=== PATIENT | female | born 1965 | race Caucasian/White ===

== ENCOUNTER 2017-12-04 16:43 | Observation (INO) ==
[2017-12-04 17:18] LABS: Hematocrit 42.9 % (37.0-47.0); Hemoglobin 14.1 gm/dL (12.5-16.0); Mean Cell Volume 94.9 fl (78-100); Mean Corpuscular Hemoglobin 31.2 pg (27-31); Mean Corpuscular Hgb Conc 32.9 g/dl (32-36); Mean Platelet Volume 8.9 fl (8-12.5); Neutrophil # 15.1 K/mm3 (1.3-6.0); Neutrophil % 82.9 % (42-75.0); Platelet Count 425 K/mm3 (150-450); Red Blood Count 4.52 M/mm3 (4.2-5.4); Red Cell Distribution Width 12.8 % (11.5-14.0); White Blood Count 18.2 K/mm3 (4.0-10.5)
--- NOTE | 2017-12-04 17:23 | ERNOTE ---
Abdominal HPI - Narrative Date of Service: 12/04/17 - General Chief Complaint: Abdominal Pain Time Seen by Provider: 12/04/17 17:22 Source: patient Exam Limitations: no limitations - Immun/Allergies/Home Medications Immunizatons: IMMUNIZATION HX Immunizations Up to Date Yes History of Influenza Vaccine Yes Hx Pneumococcal Vaccination No Allergies/Adverse Reactions: Allergies No Known Allergies Allergy (Verified 12/04/17 16:58) Home Medications: HOME MEDICATIONS Calcium Carbonate/Vitamin D3 [Calcium 500 + Vit D3 400 Tab] 1 each PO DAILY 03/31/14 [Last Taken Unknown] Ipratropium/Albuterol Sulfate [Combivent Respimat Inhal [place]] 1 puff IH QID PRN 03/31/14 [Last Taken Unknown] Multivit-Min/FA/Lycopene/Lut [Centrum Silver Tablet] 1 each PO DAILY 03/31/14 [Last Taken Unknown] Vitamin E (Dl,Tocopheryl Acet) [Vitamin E] 400 units PO DAILY 03/31/14 [Last Taken Unknown] Inhaler, Assist Devices [Space Chamber Plus] 1 dose MC PRN #1 spacer 05/10/14 [Last Taken Unknown] Ibuprofen [Motrin] 400 mg PO PRN 02/24/17 [Last Taken 02/24/17 17:00] Albuterol Sulfate [Proair Hfa] 1 - 2 puff IH Q4H PRN 12/04/17 [Last Taken Unknown] Ciprofloxacin HCl [Cipro] 500 mg PO BID 12/04/17 [Last Taken Unknown] predniSONE [Prednisone] 12/04/17 [Last Taken Unknown] - Pain Score Pain Score #1 Pain Score: 7 Abdominal Pain Onset Location: LLQ Pain Radiation: flank - left CVA - History of Present Illness Narrative: The patient is a 52 year old female who presents for LLQ, left flank and nausea which has been present for 5 days. There are associated symptoms of constipation and vomiting. The patient reports pain to LLQ, 7/10. There are no alleviating factors. There are aggravating factors of movement and oral intake. Previous treatments have included: laxative with results on 11/29/17, no BM since. Patient is also currently on treatment of Cipro and Prednisone for URI. The past medical history includes: COPD, asthma and peritonitis from ruptured ovarian cyst. The social history is positive for current smoking. The patient has had no ill contacts. Patient was started on Cipro on Saturday. Timing: getting worse Quality: cramping, sharpness Activities at Onset: none Associated Symptoms: Present: back pain, fatigue, nausea, vomiting, loss of appetite, shortness of breath. Absent: chest pain, diarrhea-gross blood, diarrhea-mucous, fever/chills, swelling/mass in abdomen Prior Abdominal Problems: Present: none Prior Treatment: Present: recently seen, currently on antibiotics Review of Systems - Review of Systems Constitutional: Present: fatigue, malaise. Absent: fever EYE: Present: no symptoms reported ENT: Absent: ear pain, nasal drainage, sore throat Respiratory: Present: shortness of breath, cough, wheezing Cardiology: Present: no symptoms reported. Absent: chest pain Gastrointestinal/Abdominal: Present: nausea, vomiting, constipation, abdominal pain, eating less, drinking less. Absent: diarrhea Genitourinary: Present: decreased urinary output. Absent: dysuria Musculoskeletal: Present: back pain Skin: Present: no symptoms reported. Absent: rash Neurological: Present: no symptoms reported Endocrine: Present: no symptoms reported Hematologic/Lymphatic: Present: no symptoms reported Psych: Present: no symptoms reported All Other Systems: All systems neg except as marked Medical History (Last Reviewed 12/04/17 @ 17:33 by ALAYNA Gibbs) History of COPD History of asthma Hx of peritonitis Surgical History: Surgical History (Last Reviewed 12/04/17 @ 17:33 by ALAYNA Gibbs) No pertinent past surgical history Family History: Family History (Last Reviewed 12/04/17 @ 17:33 by ALAYNA Gibbs) Other No pertinent family history Social History: Preferred Language [place] Smoking Status Current every day smoker Psych History No pertinent hx Alcohol Use rarely Drug Use none Physical Exam - Physical Exam General Appearance: Present: wd/wn, alert, mild distress - appears uncomfortable Head Exam: Present: normal inspection Eye Exam: Normal inspection: bilateral Respiratory: Present: no respiratory distress, wheezing - diffuse expiratory Cardiovascular/Chest: Present: regular rate, rhythm, no murmur Gastrointestinal/Abdominal: Present: nondistended, soft, no organomegaly, tenderness - LLQ, abnormal bowel sounds - hyperactive throughout Back Exam: Present: normal inspection, CVA tenderness (L) Neurological Exam: Present: alert, oriented, normal mood/affect Skin Exam: Present: normal color, warm/dry ED Progress - Date and Time Seen: Date and Time: 12/04/17 20:[address] with patient. Discussed findings and results with , plan for observation admission. - Results and Orders Patient's Lab Results:: I have reviewed the patient's lab results. - Vital Signs Patient's Vital Signs:: I have reviewed the patient's vital signs. Vital Signs: Vital Signs 12/04/17 16:53 Temperature 37.6 C Pulse Rate 95 Respiratory Rate 19 Blood Pressure 152/106 H O2 Sat by Pulse Oximetry 92 L - X-Ray X-Ray #1 X-Ray: abdomen Interpretation: Reviewed by me X-ray Comments: X-RAY REPORT ~[id number] RAD/Abdomen Flat W/ Upright *~ Exam Date: 12/04/2017 17:01 Ordering Physician: Lisandra Cool HISTORY: Abdominal Pain Additional history from technologist: left sided flank pain, n/v since . hx ruptured ovarian cyst TECHNIQUE: AP upright and supine views of the abdomen were obtained, total of 2 images. COMPARISONS: None available. FINDINGS: Abdomen Flat W/ Upright *: No subdiaphragmatic free air. No abnormal dilation of large or small bowel. There is moderate stool retention throughout the colonic segments. Air-fluid levels are noted within colonic segments. No definite pathologic calcifications apparent. Osseous structures are intact. IMPRESSION: 1. Nonobstructive bowel gas pattern. 2. Stool retention noted. Consider constipation. 3. Air-fluid levels within colonic segments could represent underlying colitis, versus diarrheal disease. Electronically signed by Tatiana Arellano M.D.. - CT/Ultrasound CT/Ultrasound Narrative: X-RAY REPORT ~[id number] CT/CT Abdomen/Pelvis W/C *~ Exam Date: 12/04/2017 18:09 Ordering Physician: Jerica Hopson HISTORY/INDICATION: wheelchair LLQ pain, left CVA tenderness Additional history from technologist: Left-sided abdominal pain. Nausea and vomiting since . TECHNIQUE: Contrast enhanced CT images of the abdomen during portal venous phase obtained. Excretory phase images of the abdomen and pelvis were also obtained. Coronal reconstructions were also submitted. Oral contrast material was given. Dose reduction techniques using the adjustment of the mA and/or kV according to patient size and/or use of AEC or iterative reconstruction were used in the acquisition of this exam. COMPARISON: None available. CT Abdomen/Pelvis W/C * ABDOMEN: Lungs: The visualized portions of the lung bases are clear. Liver: Series 3 image 10 demonstrates a 12 x 19 mm ovoid well-defined hypodense lesion in the right hepatic lobe, likely in segment 7, which appears to be less distinct and conspicuous on the delayed images. No other lesions are seen. There is no definite signs of cirrhosis. No intrahepatic ductal dilation. Gallbladder: The gallbladder appears to be grossly unremarkable. Noncalcified gallstones would be difficult to exclude, and an ultrasound of the gallbladder should be considered if there is a concern for cholecystitis or biliary colic. Pancreas: The pancreas appears to be normal in appearance. Spleen: Multiple splenic calcified granulomas are present. Adrenal glands: Unremarkable without focal finding. Kidneys: Right kidney demonstrates multiple cysts of the lower pole region without definite signs of mass or hydronephrosis. There is mild left-sided hydronephrosis, and relatively decreased enhancement of the left kidney compared to the right. Multiple hypodense lesions are likely cysts. No definite signs of a solid mass. There is no evidence for parenchymal or renal pelvic gas. On the delayed images, the left kidney demonstrates somewhat striated appearance. There is no excretion of contrast material in the left renal pelvis/ureter. Aorta: Mild calcified atherosclerotic plaques noted. Largest transaxial diameter of the infrarenal segment is 1.8 cm. Retroperitoneum: No pathologic size lymphadenopathy or mass within the retroperitoneum is seen. Stomach: Well opacified stomach unremarkable. Small bowel: Unremarkable, without signs of obstruction, bowel wall thickening, or mesenteric inflammatory changes. Colon: The colon appears to be grossly unremarkable. Appendix is not visualized definitively but no definite pericecal or right lower quadrant inflammatory changes are noted. Abdominal wall: Unremarkable without focal mass or hernia. No evidence for intraperitoneal free air. PELVIS: Contrast-filled portions of the urinary bladder demonstrates no focal finding. Series 4 image 67 demonstrates potential 2 discrete calcific/contrast densities of the left distal ureter near the left ureterovesical junction with the largest measuring approximately 2-3 mm. These could also represent small amount of contrast material refluxing into the distal ureter. No definite signs of pelvic lymphadenopathy or masses are noted. No evidence of free pelvic fluid noted. Bones: Osseous structures appear intact without obvious destructive changes. Degenerative changes of the spine noted. IMPRESSION: 1. Signs of left-sided obstructive uropathy as above, with mild left-sided hydronephrosis. There is also striated appearance of the left kidney on the delayed images. Consider superimposed infection/pyelonephritis. 2. Potential small discrete calcifications versus artifact from refluxed contrast material at the distal left ureter. 3. Multiple renal cysts. 4. Incidental lesion of the right hepatic lobe as discussed above. This is somewhat indeterminate in terms of its significance. Could represent a benign lesion such as a atypical hemangioma. Other neoplasm to include malignancy cannot be entirely excluded. Recommend routine characterization by MRI of the abdomen without and with contrast. If MRI is contraindicated, consider CT of the abdomen without and with contrast utilizing liver mass protocol. 5. Appendix not definitively seen but no definite signs of right lower quadrant/pericecal inflammatory changes. 6. Additional comments and details are as above. Electronically signed by Tatiana Arellano M.D.. - Progress/Reassessment Chief Complaint: Abdominal Pain Progress:: Unchanged Progress Note-Subjective: 12/04/17 20:47 Mild improvement to pain after medications. Departure Clinical Impression: Pyelonephritis, Failure of outpatient treatment, Pain management - Departure Disposition: Still a patient Condition: Fair
[2017-12-04 17:27] LABS: Albumin * 3.6 gm/dl (3.4-5.0); Anion Gap 8.8 mmol/L (6.8-13.8); BUN/Creatinine Ratio 18.7 (9.0-21.6); Bilirubin, Total 0.3 mg/dL (0.0-1.1); Ca. Corrected For Albumin 9.5 mg/dL (8.4-10.2); Calcium * 9.5 mg/dL (7.9-10.9); Carbon Dioxide 32.2 mmol/L (24-32.6); Total Protein 7.8 gm/dL (6.2-8.2)
[2017-12-04] MEDS ORDERED: ONDANSETRON HCL/PF 2 MG/ML VIAL IV ONE (17:36)
[2017-12-04] MEDS ORDERED: MORPHINE SULFATE 2 MG/ML DISP.SYRIN IV ONE (17:36)
[2017-12-04 17:41] LABS: Urine Bilirubin Negative (NEGATIVE); Urine Blood 250 /ul (NEGATIVE); Urine Ketone Negative (NEGATIVE); Urine Nitrite Negative (NEGATIVE); Urine Protein Negative (NEGATIVE); Urine Specific Gravity 1.025 SP.GR. (1.005-1.010); Urine Urobilinogen Normal (NORMAL); Urine pH 6.5 pH (5.0-7.0)
[2017-12-04 17:44] LABS: Urine Color Yellow
[2017-12-04 17:45] LABS: Urine Appearance Cloudy (CLEAR)
[2017-12-04 17:47] LABS: Urine Bacteria TRACE; Urine RBC 25-50 /hpf (0-5); Urine WBC 0-5 /hpf (0-5)
[2017-12-04] MEDS ORDERED: ONDANSETRON HCL/PF 2 MG/ML VIAL ONE (17:49)
[2017-12-04] MEDS ORDERED: MORPHINE SULFATE 2 MG/ML DISP.SYRIN ONE (17:49)
[2017-12-04] MEDS ORDERED: ALBUTEROL SULFATE/IPRATROPIUM 3 ML NEBU IH ONE ×3 (17:57→18:01)
[2017-12-04] MEDS ORDERED: DIATRIZOATE MEGLUMINE, SODIUM 30 ML BTL PO ONE (18:09)
[2017-12-04] MEDS ORDERED: DIATRIZOATE MEGLUMINE, SODIUM 30 ML BTL ONE (18:16)
[2017-12-04] MEDS ORDERED: NORMAL SALINE 1,000 ML IV PRN ×2 (20:58→21:10)
[2017-12-04] MEDS ORDERED: MORPHINE SULFATE 4 MG/ML SYRG IV PRN ×2 (21:00→21:15)
[2017-12-04] MEDS ORDERED: ONDANSETRON HCL/PF 2 MG/ML VIAL IV PRN (21:01)
[2017-12-04] MEDS ORDERED: SENNOSIDES/DOCUSATE SODIUM 1 TAB TABLET PO PRN (21:15)
[2017-12-04] MEDS ORDERED: HYDROcodone/ACETAMINOPHEN 1 EACH TABLET PO PRN ×2 (21:15)
[2017-12-04] MEDS ORDERED: ACETAMINOPHEN 325 MG TABLET PO PRN (21:15)
[2017-12-04] MEDS: CIPROFLOXACIN IN 5 % DEXTROSE 400 MG/200 ML BAG IV SCH (22:01)
[2017-12-05 05:30] LABS: Hematocrit 37.7 % (37.0-47.0); Hemoglobin 12.2 gm/dL (12.5-16.0); Mean Cell Volume 96.9 fl (78-100); Mean Corpuscular Hemoglobin 31.4 pg (27-31); Mean Corpuscular Hgb Conc 32.4 g/dl (32-36); Neutrophil % 80.9 % (42-75.0); Platelet Count 389 K/mm3 (150-450); Red Blood Count 3.89 M/mm3 (4.2-5.4); White Blood Count 12.3 K/mm3 (4.0-10.5)
[2017-12-05 05:52] LABS: Anion Gap 7.8 mmol/L (6.8-13.8); BUN/Creatinine Ratio 18.1 (9.0-21.6); Bilirubin, Total 0.3 mg/dL (0.0-1.1); CRP 0.2 mg/dL (0.0-0.9); Ca. Corrected For Albumin 8.9 mg/dL (8.4-10.2); Calcium * 8.4 mg/dL (7.9-10.9); Carbon Dioxide 30.4 mmol/L (24-32.6); Potassium 4.2 mmol/L (3.4-4.6); Total Protein 6.5 gm/dL (6.2-8.2)
[2017-12-05] MEDS: CIPROFLOXACIN IN 5 % DEXTROSE 400 MG/200 ML BAG IV SCH ×2 (09:36→21:11)
[2017-12-05] MEDS: HEPARIN SODIUM,PORCINE 5,000 UNITS/ML VIAL SC SCH ×2 (09:42→21:09)
--- NOTE | 2017-12-05 09:50 | HP ---
Chief Complaint - Chief Complaint Date of Service: 12/05/17 Time of Service: 06:50 Chief Complaint: LLQ pain, left flank pain, fevers, chills, nausea/vomiting History of Present Illness: The patient presented to the emergency department with complaints of left lower quadrants and left flank pain as well as nausea and vomiting for the past 5 days or so. The patient's primary care provider is Tina Caicedo and the patient states she was recently diagnosed with bronchitis and started on oral ciprofloxacin and prednisone on Saturday11/30/2017. The patient has not had any improvement in her symptoms since starting this treatment and states things have actually worsened in the left lower quadrant and left flank pain has become more severe. The patient thought that her pain may be secondary to constipation so she took a bunch of laxatives and got cleaned out over the weekend but has not had a bowel movement in a couple days now. She states that despite getting cleaned out, she did not have improvement in her symptoms. Other than the recently prescribed Cipro and prednisone, the patient denies any recent medication changes. She also denies any recent diet changes and specifically denies taking large amounts of Tums or similar. The patient denies any prior known history of kidney stones. The patient denies any urinary symptoms; she denies gross hematuria, dysuria, urgency, hesitancy or frequency. Medical History (Last Reviewed 12/04/17 @ 23:02 by Prachi Espinoza RN) Squamous cell skin cancer, face History of COPD History of asthma Hx of peritonitis Surgical History: Surgical History (Last Reviewed 12/04/17 @ 23:02 by Prachi Espinoza RN) No pertinent past surgical history Family History: Family History (Last Updated 12/04/17 @ 23:03 by Prachi Espinoza RN) Father No pertinent family history COPD (chronic obstructive pulmonary disease) Other Cancer of lung Hypertension Social History: Patient Lives/Resources With Spouse Utilized Occupation RN Preferred Language Thai Do you have any jew or No cultural preference? Smoking Status Current every day smoker Have you smoked in the past 12 Yes months Do you dip or chew tobacco No Psych History No pertinent hx Alcohol Use rarely Drug Use none Review Of Systems (GEN) - Review of Systems Generalized/Overall Review: Present: Weakness, Chills, Fever, Fatigue EENTM: Present: No Symptoms Reported Respiratory: Present: No Symptoms Reported. Absent: Cough, Shortness of Breath, Wheezing Cardiac: Present: No Symptoms Reported Abdominal: Present: Nausea, Vomiting Genitourinary: Absent: Burning, Itching, Urgency, Frequency, Hesitancy, Incontinent, Hematuria, Dysuria Musculoskeletal: Present: Back Pain - left flank pain Neurological: Present: No Symptoms Reported Skin: Present: No Symptoms Reported Endocrine: Present: No Symptoms Reported Misc: All systems neg except as marked Immunizations: IMMUNIZATION HX Immunizations Up to Date Yes History of Influenza Vaccine Yes Hx Pneumococcal Vaccination No Allergies/Adverse Reactions: Allergies Allergy/AdvReac Type Severity Reaction Status Date / Time No Known Allergies Allergy Verified 12/04/17 16:58 Home Medications: HOME MEDICATIONS Calcium Carbonate/Vitamin D3 [Calcium 500 + Vit D3 400 Tab] 1 each PO DAILY 03/31/14 [Last Taken 12/04/17] Ipratropium/Albuterol Sulfate [Combivent Respimat Inhal [place]] 1 puff IH QID PRN 03/31/14 [Last Taken 12/04/17] Multivit-Min/FA/Lycopene/Lut [Centrum Silver Tablet] 1 each PO DAILY 03/31/14 [Last Taken 12/04/17] Vitamin E (Dl,Tocopheryl Acet) [Vitamin E] 400 units PO DAILY 03/31/14 [Last Taken 12/04/17] Ibuprofen [Motrin] 400 mg PO PRN 02/24/17 [Last Taken 12/04/17] Albuterol Sulfate [Proair Hfa] 1 - 2 puff IH Q4H PRN 12/04/17 [Last Taken 12/04/17] Ciprofloxacin HCl [Cipro] 500 mg PO BID 12/04/17 [Last Taken 12/04/17 08:00] predniSONE [Prednisone] See Taper PO TID 12/04/17 [Last Taken 12/04/17 15:00] Exam - Exam Vital Signs: Vital Signs - Last Taken Temp 36.7 C 12/05/17 06:47 Pulse 80 12/05/17 06:47 Resp 12 12/05/17 06:47 BP 131/88 12/05/17 06:47 Pulse Ox 98 12/05/17 06:47 Constitutional: Present: Alert, Oriented x3, Cooperative, No distress ENT Exam: Present: normal ENT inspection, hearing grossly normal, moist mucous membranes Back Exam: Present: CVA tenderness (L) Respiratory: Present: lungs clear, normal breath sounds, no respiratory distress, no accessory muscle use Cardiovascular/Chest: Present: regular rate, rhythm Abdomen: Present: Normal bowel sounds, soft, nontender, nondistended, tender, CVA tenderness. Absent: guarding, rigidity, rebound tenderness Extremity: Present: normal range of motion, normal inspection Skin Exam: Present: normal color, warm/dry Neurologic: Present: no motor/sensory deficits, alert, normal mood/affect, oriented x 3 Appearance: Present: appropriate appearance, appropriate insight, neat, no memory impairment Eye contact: Present: cooperative, good eye contact, normal speech Thoughts: Present: normal thought pattern, no apparent hallucination Diagnostic Studies: Abnormal Lab Results 12/04/17 12/04/17 12/04/17 Range/Units 17:13 17:13 17:37 WBC 18.2 H (4.0-10.5) K/mm3 RBC (4.2-5.4) M/mm3 Hgb (12.5-16.0) gm/dL MCH 31.2 H (27-31) pg Immature Gran % (Auto) 0.60 H (0.001-0.429) % Immature Gran # (Auto) 0.11 H (0.000-0.0310) K/mm3 Neutrophils % 82.9 H (42-75.0) % Lymphocytes % 9.2 L (20-51) % Neutrophils # 15.1 H (1.3-6.0) K/mm3 Lymphocytes # (1.5-3.5) k/mm3 Monocytes # 1.3 H (0.0-1.0) k/mm3 ESR (0-15) mm/hr BUN 25 H (3-23) mg/dL Est GFR (Non-Af Amer) 44 L D (60-130) mL/min Random Glucose 134 H (70-110) mg/dL Albumin (3.4-5.0) gm/dl Procalcitonin (0.05-0.50) ng/mL Urine Blood 250 H (NEGATIVE) /ul Ur Leukocyte Esterase 25 H (NEGATIVE) /ul Urine RBC 25-50 H (0-5) /hpf 12/05/17 12/05/17 12/05/17 Range/Units 05:00 05:00 05:00 WBC 12.3 H D (4.0-10.5) K/mm3 RBC 3.89 L (4.2-5.4) M/mm3 Hgb 12.2 L (12.5-16.0) gm/dL MCH 31.4 H (27-31) pg Immature Gran % (Auto) 0.50 H (0.001-0.429) % Immature Gran # (Auto) 0.06 H (0.000-0.0310) K/mm3 Neutrophils % 80.9 H (42-75.0) % Lymphocytes % 12.0 L (20-51) % Neutrophils # 10.0 H (1.3-6.0) K/mm3 Lymphocytes # 1.47 L (1.5-3.5) k/mm3 Monocytes # (0.0-1.0) k/mm3 ESR 21 H (0-15) mm/hr BUN (3-23) mg/dL Est GFR (Non-Af Amer) 58 L D (60-130) mL/min Random Glucose 117 H (70-110) mg/dL Albumin 3.0 L (3.4-5.0) gm/dl Procalcitonin (0.05-0.50) ng/mL Urine Blood (NEGATIVE) /ul Ur Leukocyte Esterase (NEGATIVE) /ul Urine RBC (0-5) /hpf 12/05/17 Range/Units 05:00 WBC (4.0-10.5) K/mm3 RBC (4.2-5.4) M/mm3 Hgb (12.5-16.0) gm/dL MCH (27-31) pg Immature Gran % (Auto) (0.001-0.429) % Immature Gran # (Auto) (0.000-0.0310) K/mm3 Neutrophils % (42-75.0) % Lymphocytes % (20-51) % Neutrophils # (1.3-6.0) K/mm3 Lymphocytes # (1.5-3.5) k/mm3 Monocytes # (0.0-1.0) k/mm3 ESR (0-15) mm/hr BUN (3-23) mg/dL Est GFR (Non-Af Amer) (60-130) mL/min Random Glucose (70-110) mg/dL Albumin (3.4-5.0) gm/dl Procalcitonin Less than 0.05 L (0.05-0.50) ng/mL Urine Blood (NEGATIVE) /ul Ur Leukocyte Esterase (NEGATIVE) /ul Urine RBC (0-5) /hpf Microbiology 12/04/17 17:37 Urine Culture - Preliminary Urine,Voided No Growth Laboratory Results WBC 12.3 K/mm3 (4.0-10.5) H D 12/05/17 05:00 RBC 3.89 M/mm3 (4.2-5.4) L 12/05/17 05:00 Hgb 12.2 gm/dL (12.5-16.0) L 12/05/17 05:00 Hct 37.7 % (37.0-47.0) 12/05/17 05:00 MCV 96.9 fl (78-100) 12/05/17 05:00 MCH 31.4 pg (27-31) H 12/05/17 05:00 MCHC 32.4 g/dl (32-36) 12/05/17 05:00 RDW 13.0 % (11.5-14.0) 12/05/17 05:00 Plt Count 389 K/mm3 (150-450) 12/05/17 05:00 MPV 9.0 fl (8-12.5) 12/05/17 05:00 Immature Gran % (Auto) 0.50 % (0.001-0.429) H 12/05/17 05:00 Immature Gran # (Auto) 0.06 K/mm3 (0.000-0.0310) H 12/05/17 05:00 Neutrophils % 80.9 % (42-75.0) H 12/05/17 05:00 Lymphocytes % 12.0 % (20-51) L 12/05/17 05:00 Monocytes % 6.3 % (0.0-9) 12/05/17 05:00 Eosinophils % 0.1 % (0.0-3.0) 12/05/17 05:00 Basophils % 0.2 % (0.0-1.0) 12/05/17 05:00 Nucleated RBC % 0.0 k/mm3 (0-1) 12/05/17 05:00 Neutrophils # 10.0 K/mm3 (1.3-6.0) H 12/05/17 05:00 Lymphocytes # 1.47 k/mm3 (1.5-3.5) L 12/05/17 05:00 Monocytes # 0.8 k/mm3 (0.0-1.0) 12/05/17 05:00 Eosinophils # 0.0 k/mm3 (0.0-0.7) 12/05/17 05:00 Absolute Basophils 0.0 k/mm3 (0.0-0.1) 12/05/17 05:00 ESR 21 mm/hr (0-15) H 12/05/17 05:00 Sodium 136 mmol/L (132-142) 12/05/17 05:00 Plasma Sodium 136 mmol/L (130-142) 12/05/17 05:00 Potassium 4.2 mmol/L (3.4-4.6) 12/05/17 05:00 Chloride 102 mmol/L (97-106) 12/05/17 05:00 Carbon Dioxide 30.4 mmol/L (24-32.6) 12/05/17 05:00 Anion Gap 7.8 mmol/L (6.8-13.8) 12/05/17 05:00 BUN 19 mg/dL (3-23) 12/05/17 05:00 Creatinine 1.05 mg/dL (0.4-1.4) 12/05/17 05:00 Est GFR (Non-Af Amer) 58 mL/min (60-130) L D 12/05/17 05:00 BUN/Creatinine Ratio 18.1 (9.0-21.6) 12/05/17 05:00 Random Glucose 117 mg/dL (70-110) H 12/05/17 05:00 Calcium 8.4 mg/dL (7.9-10.9) 12/05/17 05:00 Calcium Adj for Albumin 8.9 mg/dL (8.4-10.2) 12/05/17 05:00 Total Bilirubin 0.3 mg/dL (0.0-1.1) 12/05/17 05:00 AST 14 U/L (0-48) 12/05/17 05:00 ALT 21 U/L (19-67) 12/05/17 05:00 Alkaline Phosphatase 83 U/L (50-170) 12/05/17 05:00 C-Reactive Prot, Quant 0.2 mg/dL (0.0-0.9) 12/05/17 05:00 Total Protein 6.5 gm/dL (6.2-8.2) 12/05/17 05:00 Albumin 3.0 gm/dl (3.4-5.0) L 12/05/17 05:00 Procalcitonin Less than 0.05 ng/mL (0.05-0.50) L 12/05/17 05:00 Urine Color Yellow 12/04/17 17:37 Urine Appearance Cloudy (CLEAR) 12/04/17 17:37 Urine pH 6.5 pH (5.0-7.0) 12/04/17 17:37 Ur Specific [place] 1.025 SP.GR. (1.005-1.010) 12/04/17 17:37 Urine Protein Negative mg/dL (NEGATIVE) 12/04/17 17:37 Urine Glucose (UA) Negative mg/dL (NEGATIVE) 12/04/17 17:37 Urine Ketones Negative mg/dL (NEGATIVE) 12/04/17 17:37 Urine Blood 250 /ul (NEGATIVE) H 12/04/17 17:37 Urine Nitrate Negative (NEGATIVE) 12/04/17 17:37 Urine Bilirubin Negative mg/dl (NEGATIVE) 12/04/17 17:37 Urine Urobilinogen Normal EU/dl (NORMAL) 12/04/17 17:37 Ur Leukocyte Esterase 25 /ul (NEGATIVE) H 12/04/17 17:37 Urine RBC 25-50 /hpf (0-5) H 12/04/17 17:37 Urine WBC 0-5 /hpf (0-5) 12/04/17 17:37 Ur Epithelial Cells Trace /hpf (0-5) 12/04/17 17:37 Urine Bacteria Trace (NONE) 12/04/17 17:37 Urine Culture Comments Culture to follow 12/04/17 17:37 Assessment/Plan - Narrative Narrative: IMPRESSION & PLAN: Left-sided Pyelonephritis -Most likely secondary to obstructive uropathy as discussed below -Admit to inpatient as the patient will require at least 2-3 days of IV antibiotics -Continue pain and nausea medications as needed. -Continue IV ciprofloxacin and await final culture and sensitivity results Left-sided Hydronephrosis -Concern for possible obstructive uropathy -The patient's case and imaging was discussed with radiologist, Dr. Arce and I greatly appreciate his input. CT scan of abdomen and pelvis with contrast obtained in the ED was personally reviewed with Dr. Arce and seen on image 67, there are two hyperdense punctate lesions just proximal to the UPJ on the left. He is fairly certain that these represent kidney stones, one measuring 2 mm and the other 1 mm in size. -Continue to strain all urine -Given the size of the stones, I am hopeful the patient will be able to pass the stones on her own. If patient passes stone(s), please send stone for analysis. -Start Flomax 0.4 mg by mouth daily -If the patient is unable to pass the stones on her own today, I will contact urology to discuss the plan of care as they will be in house tomorrow 12/06/2017. Leukocytosis -Secondary to pyelonephritis -Blood cultures 2 were ordered on admission -Continue IV antibiotic treatment with ciprofloxacin -Continue to monitor and adjust antibiotics based on patient's clinical course and culture results and sensitivities Acute Kidney Injury -Patient with a baseline creatinine less than 1 -Likely multifactorial secondary to prerenal intravascular volume depletion due to decreased by mouth intake as well as left-sided pyelonephritis -Continue IV fluid hydration -Recheck BMP in a.m. Hyperglycemia/impaired fasting glucose -Check hemoglobin A1c in a.m. VTE prophylaxis: SCDs, heparin Q12H. Heparin chosen over Lovenox due to possible need for urologic procedure and if necessary, procedures can be performed at least 6 hours after heparin administration versus 24 hours with Lovenox. - Assessment/Plan (1) Pyelonephritis Problem: Acute (2) Failure of outpatient treatment Problem: Acute (3) Obstructive uropathy Problem: Suspected (4) Leukocytosis Problem: Acute (5) Hyperglycemia Problem: Acute (6) Impaired fasting glucose Problem: Acute (7) SHASHA (acute kidney injury) Problem: Acute (8) Hydronephrosis of left kidney Problem: Acute (9) Left nephrolithiasis Problem: Acute
[2017-12-05] MEDS: COMBIVENT INHALER PO SCH ×3 (10:05→21:08)
[2017-12-05] MEDS ORDERED: TAMSULOSIN HCL 0.4 MG CAP.SR.24H PO SCH (18:00)
[2017-12-06] MEDS: COMBIVENT INHALER PO SCH ×2 (03:31→07:00)
[2017-12-06 05:31] LABS: Anion Gap 4.4 mmol/L (6.8-13.8); BUN/Creatinine Ratio 13.9 (9.0-21.6); Calcium * 8.9 mg/dL (7.9-10.9); Carbon Dioxide 31.9 mmol/L (24-32.6); Estimated Creat Clear 64.4; Potassium 3.3 mmol/L (3.4-4.6)
[2017-12-06 05:32] LABS: Hematocrit 40.4 % (37.0-47.0); Hemoglobin 12.8 gm/dL (12.5-16.0); Mean Cell Volume 96.2 fl (78-100); Mean Corpuscular Hemoglobin 30.5 pg (27-31); Mean Corpuscular Hgb Conc 31.7 g/dl (32-36); Mean Platelet Volume 8.9 fl (8-12.5); Neutrophil # 5.6 K/mm3 (1.3-6.0); Neutrophil % 59.8 % (42-75.0); Platelet Count 418 K/mm3 (150-450); Red Cell Distribution Width 13.1 % (11.5-14.0); White Blood Count 9.4 K/mm3 (4.0-10.5)
[2017-12-06] MEDS: HEPARIN SODIUM,PORCINE 5,000 UNITS/ML VIAL SC SCH (07:35)
[2017-12-06] MEDS ORDERED: POTASSIUM CHLORIDE 20 MEQ TABLET.SA PO ONE (08:22)
[2017-12-06] MEDS: CIPROFLOXACIN IN 5 % DEXTROSE 400 MG/200 ML BAG IV SCH (08:54)
[2017-12-06 11:23] VITALS: BP 138/88
--- NOTE | 2017-12-06 11:29 | DS ---
(1) Pyelonephritis Problem: Acute (2) Failure of outpatient treatment Problem: Acute (3) Obstructive uropathy Problem: Suspected (4) Leukocytosis Problem: Acute (5) Hyperglycemia Problem: Acute (6) Impaired fasting glucose Problem: Acute (7) SHASHA (acute kidney injury) Problem: Acute (8) Hydronephrosis of left kidney Problem: Acute (9) Left nephrolithiasis Problem: Acute Description of Stay: ADMISSION DATE: 12/05/2017 DISCHARGE DATE: 12/06/2017 ADMISSION HPI: The patient presented to the emergency department with complaints of left lower quadrants and left flank pain as well as nausea and vomiting for the past 5 days or so. The patient's primary care provider is Tina Caicedo and the patient states she was recently diagnosed with bronchitis and started on oral ciprofloxacin and prednisone on Saturday11/30/2017. The patient has not had any improvement in her symptoms since starting this treatment and states things have actually worsened in the left lower quadrant and left flank pain has become more severe. The patient thought that her pain may be secondary to constipation so she took a bunch of laxatives and got cleaned out over the weekend but has not had a bowel movement in a couple days now. She states that despite getting cleaned out, she did not have improvement in her symptoms. Other than the recently prescribed Cipro and prednisone, the patient denies any recent medication changes. She also denies any recent diet changes and specifically denies taking large amounts of Tums or similar. The patient denies any prior known history of kidney stones. The patient denies any urinary symptoms; she denies gross hematuria, dysuria, urgency, hesitancy or frequency. PROBLEM BASED HOSPITAL COURSE: Left-sided Pyelonephritis -Secondary to obstructive uropathy as discussed below -Patient admitted to inpatient as the patient needed IV antibiotics. Given her nausea and vomiting prior to admission, I was not convinced she had truly failed treatment with Cipro so she was treated with IV Cipro during her admission with good response to treatment. -Patient was treated with pain and nausea medications as needed. Left-sided Hydronephrosis -Concern for possible obstructive uropathy -The patient's case and imaging was discussed with radiologist, Dr. Arce and I greatly appreciate his input. CT scan of abdomen and pelvis with contrast obtained in the ED was personally reviewed with Dr. Arce and seen on image 67, there are two hyperdense punctate lesions just proximal to the UPJ on the left. He is fairly certain that these represent kidney stones, one measuring 2 mm and the other 1 mm in size. -Patient was started on Flomax 0.4 mg by mouth daily during her admission but this was discontinued at discharge as it appears the patient has passed her stones (resolution of flank and abdominal and groin pain) -All urine was strained during hospitalization but not stones collected which is not unexpected given the extremely small size of the stones. Leukocytosis -Secondary to pyelonephritis -Blood cultures 2 were ordered on admission. NGTD. -Leukocytosis markedly improved and WBC count WNL prior to discharge Acute Kidney Injury -Patient with a baseline creatinine less than 1 -Likely multifactorial secondary to prerenal intravascular volume depletion due to decreased by mouth intake as well as left-sided pyelonephritis -Patient treated with aggressive IVF hydration and her creatinine was improved prior to discharge. Hyperglycemia/impaired fasting glucose -Possible just related to acute illness. However, I would recommend checking an A1c on an outpatient basis. VTE prophylaxis: Patient treated with SCDs and subQ heparin Q12H during her admission. Heparin was chosen over Lovenox due to the possible need for urologic procedure and if necessary, procedures can be performed at least 6 hours after heparin administration versus 24 hours with Lovenox. DISPOSITION: The AM of discharge, the patients presenting symptoms had resolved and she was essentially back to her baseline so it is most likely she has passed her kidney stones and she will be discharged home in stable condition and instructed to follow-up with her PCP within 1 week. FOLLOW-UP APPOINTMENTS: -PCP within 1 week NEW OR CHANGED MEDICATIONS: -Ciprofloxacin 500mg PO BID X 5 additional days DISCONTINUED MEDICATIONS: -None RADIOLOGY REPORTS: Flat with upright abdominal x-ray on 12/04/2017: No subdiaphragmatic free air. No abnormal dilation of large or small bowel. There is moderate stool retention throughout the colonic segments. Air-fluid levels are noted within colonic segments. No definite pathologic calcifications apparent. Osseous structures are intact. IMPRESSION: 1. Nonobstructive bowel gas pattern. 2. Stool retention noted. Consider constipation. 3. Air-fluid levels within colonic segments could represent underlying colitis, versus diarrheal disease. CT abdomen and pelvis with contrast on 12/04/2017: Lungs: The visualized portions of the lung bases are clear. Liver: Series 3 image 10 demonstrates a 12 x 19 mm ovoid well-defined hypodense lesion in the right hepatic lobe, likely in segment 7, which appears to be less distinct and conspicuous on the delayed images. No other lesions are seen. There is no definite signs of cirrhosis. No intrahepatic ductal dilation. Gallbladder: The gallbladder appears to be grossly unremarkable. Noncalcified gallstones would be difficult to exclude, and an ultrasound of the gallbladder should be considered if there is a concern for cholecystitis or biliary colic. Pancreas: The pancreas appears to be normal in appearance. Spleen: Multiple splenic calcified granulomas are present. Adrenal glands: Unremarkable without focal finding. Kidneys: Right kidney demonstrates multiple cysts of the lower pole region without definite signs of mass or hydronephrosis. There is mild left-sided hydronephrosis, and relatively decreased enhancement of the left kidney compared to the right. Multiple hypodense lesions are likely cysts. No definite signs of a solid mass. There is no evidence for parenchymal or renal pelvic gas. On the delayed images, the left kidney demonstrates somewhat striated appearance. There is no excretion of contrast material in the left renal pelvis/ureter. Aorta: Mild calcified atherosclerotic plaques noted. Largest transaxial diameter of the infrarenal segment is 1.8 cm. Retroperitoneum: No pathologic size lymphadenopathy or mass within the retroperitoneum is seen. Stomach: Well opacified stomach unremarkable. Small bowel: Unremarkable, without signs of obstruction, bowel wall thickening, or mesenteric inflammatory changes. Colon: The colon appears to be grossly unremarkable. Appendix is not visualized definitively but no definite pericecal or right lower quadrant inflammatory changes are noted. Abdominal wall: Unremarkable without focal mass or hernia. No evidence for intraperitoneal free air. PELVIS: Contrast-filled portions of the urinary bladder demonstrates no focal finding. Series 4 image 67 demonstrates potential 2 discrete calcific/contrast densities of the left distal ureter near the left ureterovesical junction with the largest measuring approximately 2-3 mm. These could also represent small amount of contrast material refluxing into the distal ureter. No definite signs of pelvic lymphadenopathy or masses are noted. No evidence of free pelvic fluid noted. Bones: Osseous structures appear intact without obvious destructive changes. Degenerative changes of the spine noted. IMPRESSION: 1. Signs of left-sided obstructive uropathy as above, with mild left-sided hydronephrosis. There is also striated appearance of the left kidney on the delayed images. Consider superimposed infection/pyelonephritis. 2. Potential small discrete calcifications versus artifact from refluxed contrast material at the distal left ureter. 3. Multiple renal cysts. 4. Incidental lesion of the right hepatic lobe as discussed above. This is somewhat indeterminate in terms of its significance. Could represent a benign lesion such as a atypical hemangioma. Other neoplasm to include malignancy cannot be entirely excluded. Recommend routine characterization by MRI of the abdomen without and with contrast. If MRI is contraindicated, consider CT of the abdomen without and with contrast utilizing liver mass protocol. 5. Appendix not definitively seen but no definite signs of right lower quadrant/pericecal inflammatory changes. 6. Additional comments and details are as above. Retroperitoneal ultrasound on 12/05/2017: Findings: Again identified is mild left-sided hydronephrosis. No significant im provement or worsening since the CT scan performed approximately 12 hours earlier. No right-sided hydronephrosis. Multiple renal cysts seen bilaterally. No obvious solid renal masses identified. The right kidney measures 10.0 x 4.7 x 5.7 cm. The left kidney measures 10.0 x 7.0 x 5.6 cm. The bladder is well distended with normal contour and wall thickness. Bilateral ureteral jets were identified. Bladder volume = 62 mL. IMPRESSION: 1. PERSISTENT MILD LEFT HYDRONEPHROSIS. 2. STABLE BILATERAL RENAL CYSTS. Procedures Performed: none Results and Findings: Pending Mircobiology Results 12/04/17 21:45 Blood Blood Culture - Preliminary NO GROWTH 24 HOURS 12/04/17 21:30 Blood Blood Culture - Preliminary NO GROWTH 24 HOURS Lab Pending Results 12/04/17 17:13: WBC 18.2 H, RBC 4.52, Hgb 14.1, Hct 42.9, MCV 94.9, MCH 31.2 H, MCHC 32.9, RDW 12.8, Plt Count 425, MPV 8.9, Immature Gran % (Auto) 0.60 H, Immature Gran # (Auto) 0.11 H, Neutrophils % 82.9 H, Lymphocytes % 9.2 L, Monocytes % 7.0, Eosinophils % 0.1, Basophils % 0.2, Nucleated RBC % 0.0, Neutrophils # 15.1 H, Lymphocytes # 1.67, Monocytes # 1.3 H, Eosinophils # 0.0, Absolute Basophils 0.0 12/04/17 17:13: Sodium 134, Plasma Sodium 135, Potassium 4.0, Chloride 97, Carbon Dioxide 32.2, Anion Gap 8.8, BUN 25 H, Creatinine 1.34, Est GFR (Non-Af Amer) 44 L D, BUN/Creatinine Ratio 18.7, Random Glucose 134 H, Calcium 9.5, Ca lcium Adj for Albumin 9.5, Total Bilirubin 0.3, AST 19, ALT 26, Alkaline Phosphatase 95, Total Protein 7.8, Albumin 3.6 12/04/17 17:37: Urine Color Yellow, Urine Appearance Cloudy, Urine pH 6.5, Ur Specific [place] 1.025, Urine Protein Negative, Urine Glucose (UA) Negative, Urine Ketones Negative, Urine Blood 250 H, Urine Nitrate Negative, Urine Bilirubin Negative, Urine Urobilinogen Normal, Ur Leukocyte Esterase 25 H, Urine RBC 25-50 H, Urine WBC 0-5, Ur Epithelial Cells Trace, Urine Bacteria Trace, Urine Culture Comments Culture to follow 12/05/17 05:00: WBC 12.3 H D, RBC 3.89 L, Hgb 12.2 L, Hct 37.7, MCV 96.9, MCH 31.4 H, MCHC 32.4, RDW 13.0, Plt Count 389, MPV 9.0, Immature Gran % (Auto) 0.50 H, Immature Gran # (Auto) 0.06 H, Neutrophils % 80.9 H, Lymphocytes % 12.0 L, Monocytes % 6.3, Eosinophils % 0.1, Basophils % 0.2, Nucleated RBC % 0.0, Neutrophils # 10.0 H, Lymphocytes # 1.47 L, Monocytes # 0.8, Eosinophils # 0.0, Absolute Basophils 0.0 12/05/17 05:00: Sodium 136, Plasma Sodium 136, Potassium 4.2, Chloride 102, Carbon Dioxide 30.4, Anion Gap 7.8, BUN 19, Creatinine 1.05, Est GFR (Non-Af Amer) 58 L D, BUN/Creatinine Ratio 18.1, Random Glucose 117 H, Calcium 8.4, Calcium Adj for Albumin 8.9, Total Bilirubin 0.3, AST 14, ALT 21, Alkaline Phosphatase 83, C-Reactive Prot, Quant 0.2, Total Protein 6.5, Albumin 3.0 L 12/05/17 05:00: ESR 21 H 12/05/17 05:00: Procalcitonin Less than 0.05 L 12/06/17 05:05: WBC 9.4 D, RBC 4.20, Hgb 12.8, Hct 40.4, MCV 96.2, MCH 30.5, MCHC 31.7 L, RDW 13.1, Plt Count 418, MPV 8.9, Immature Gran % (Auto) 0.30, Immature Gran # (Auto) 0.03, Neutrophils % 59.8, Lymphocytes % 27.5, Monocytes % 9.1 H, Eosinophils % 2.9, Basophils % 0.4, Nucleated RBC % 0.0, Neutrophils # 5.6, Lymphocytes # 2.59, Monocytes # 0.9, Eosinophils # 0.3, Absolute Basophils 0.0 12/06/17 05:05: Sodium 135, Plasma Sodium 135, Potassium 3.3 L D, Chloride 102, Carbon Dioxide 31.9, Anion Gap 4.4 L, BUN 11, Creatinine 0.79, Est GFR (Non-Af Amer) 81 D, BUN/Creatinine Ratio 13.9, Random Glucose 94, Calcium 8.9 Discharge Location: Home Disposition: Home self-care Condition: Stable Discharge Activity: Activity as tolerated Discharge Diet: General/regular food, Resume usual diet Referrals: Amy Caicedo MD [Primary Care Provider] - Problem Oriented Discharge Instructions to Patient/Family: Smoking Cessation, Tips for Success, [id number], Pyelonephritis, Adult, [id number] Additional Patient Instructions (free text): -Follow-up with PCP within 1 week [facility] staff will call with appointment date and time. Complete Home Medications List: Complete Home Medication List: Ipratropium/Albuterol Sulfate [Combivent Respimat 20-100 Mcg] 1 puff IH QID PRN 03/31/14 Multivit-Min/FA/Lycopene/Lut [Centrum Silver Tablet] 1 each PO DAILY 03/31/14 Vitamin E (Dl,Tocopheryl Acet) [Vitamin E] 400 units PO DAILY 03/31/14 Albuterol Sulfate [Proair Hfa] 1 - 2 puff IH Q4H PRN 12/04/17
== END 2017-12-06 12:13 | disposition home or self-care (01) | DRG 690 ==
LOC: MS 16:43 → ER 16:43 → MS 22:08
PROVIDERS: ADMIT Internal Medicine; ATTEND Internal Medicine
CPT/HCPCS: 36415; 74019; 74020; 74177; 76770; 80048; 80053; 81001; 84145; 85025; 85652; 86140; 87040; 87086; 90471; 90686; 94640; 94664; 96361; 96365; 96366; 96374; 96375; 99285; G0378; J2405